=== PATIENT | female | born 1945 | race Caucasian/White ===

== ENCOUNTER 2017-11-30 17:46 | Emergency (ER) | payer OTHER ==
[~2017-11-30] VITALS: Ht 147.3 cm; Wt 61.2 kg
[~2017-11-30 17:46] MED LIST: ALBUTEROL2.5 MG/0.5 INH; ALEVE220 M1 PO; APAP500 PO; ASPIRIN81 M2 PO; CARAFATE 1 GM TA1 G1 PO; CHANTIX1 MG; DOXYCYCLINE 10100 MG PO; FISH OIL 1,001000 M2 PO; IRON325 PO; MULTI-VITAMIN1 EAC5 PO; NEURONTIN800 MG PO; NORCO 5-325 TA1 EACH PO; PERCOCET PO; PROTONIX40 M1 PO; SPIRIVA INH; VENTOLIN HFA 1818 GM INH; ZANAFLEX4 MG; ZEGERID 40 MG1 EACH PO; ZYRTEC10 M5 PO
[2017-11-30 18:21] LABS: URINE BILIRUBIN NEGATIVE (Negative); URINE BLOOD NEGATIVE (Negative); URINE CLARITY CLEAR; URINE COLOR YELLOW; URINE GLUCOSE-RANDOM NEGATIVE (Negative); URINE KETONES NEGATIVE (Negative); URINE LEUKOCYTES-REFLEX NEGATIVE (Negative); URINE NITRITE-REFLEX NEGATIVE (Negative); URINE PROTEIN 3+ (Negative); URINE SPECIFIC GRAVITY >= 1.030 (1.005-1.030); URINE UROBILINOGEN 0.2 E.U./dl (0.2-1.0)
[2017-11-30 18:22] LABS: ABSOLUTE BASOPHILS 0.1 thou/uL (0.0-0.2); ABSOLUTE EOSINOPHILS 0.2 thou/uL (0.0-0.7); ABSOLUTE LYMPHOCYTES 1.7 thou/uL (0.8-5.3); ABSOLUTE MONOCYTES 0.8 thou/uL (0.0-1.2); ABSOLUTE NEUTROPHILS 11.4 thou/uL (1.6-8.1); BASOPHILS 0.8 %; EOSINOPHILS 1.2 %; HEMATOCRIT 40.7 % (37.0-47.0); HEMOGLOBIN 13.4 gm/dL (12.0-15.0); LYMPHOCYTES 11.7 %; MCH 29.7 pg (26.0-34.0); MCHC 32.9 g/dL (28.0-37.0); MCV 90.2 fL (80.0-100.0); MONOCYTES 5.8 %; MPV 8.5 fl. (7.2-11.1); NUCLEATED RBCS 0 /100WBC; PLATELET COUNT* 299 thou/uL (150-400); POLYS 80.5 %; RBC 4.52 mil/uL (4.20-5.00); RDW-CV 15.3 % (10.5-14.5); WBC 14.2 thou/uL (4.0-11.0)
[2017-11-30 18:25] LABS: SQUAMOUS 4-10 Moderate /LPF (0-3); URINE RBC None Seen /HPF (0-2); URINE WBC-REFLEX None Seen /HPF (0-5)
[2017-11-30 18:26] LABS: BACTERIA-REFLEX None Seen /HPF (None Seen); CRYSTALS None Seen /LPF (None Seen); HYALINE CASTS 0-3 Few /LPF (None Seen); MUCUS 0-3 Light strn/LPF (None Seen)
[2017-11-30 18:30] LABS: ANION GAP 7 mmol/L (7-16); BUN 15 mg/dL (7-18); CALCIUM 8.6 mg/dL (8.5-10.1); CHLORIDE 105 mmol/L (98-107); CO2 27 mmol/L (21-32); CREATININE 1.3 mg/dL (0.6-1.3); GLUCOSE 90 mg/dL (70-99); POTASSIUM 3.7 mmol/L (3.5-5.1); SODIUM 139 mmol/L (136-145)
[2017-11-30 18:40] LABS: ALBUMIN 3.3 g/dL (3.4-5.0); ALKALINE PHOSPHATASE 94 U/L (46-116); LIPASE 108 U/L (73-393); NT-PRO BRAIN NAT PEPTIDE 1110 pg/mL (<300); SGOT 18 U/L (15-37); SGPT 20 U/L (30-65); TOTAL BILIRUBIN 0.3 mg/dL (<0.1-1.0); TOTAL PROTEIN 6.7 g/dL (6.4-8.2); TROPONIN-I LEVEL <0.06 ng/mL (<0.06)
[2017-11-30] MEDS ORDERED: LEVAQUIN 750 M750 MG PO (22:22)
[2017-11-30] MEDS ORDERED: PHENERGAN 25 MG25 MG PO (22:23)
[2017-11-30 22:46] VITALS: BP 185/98
--- NOTE | 2017-12-01 16:35 | EKG ---
[place] [address] ELECTROCARDIOGRAM REPORT Name: MAKENNA AVILES Room: [facility]#: [id number] Admission: 11/30/17 Attend Phys: Discharge: 11/30/17 Date of : 49 Report #: [id number] THIS REPORT FOR: //name// [facility] ED Test Date: 2017-11-30 Test Time: 18:17:11 Pat Name: MAKENNA AVILES Department: Room: Gender: F Players Assistant: JAEMS : 1945 Requested By: Dilia Handy Order Number: [id number] MD: Bay Haley Measurements Intervals [place] Rate: 63 P: -8 NV: 213 QRS: -63 QRSD: 139 T: -17 QT: 417 QTc: 427 Interpretive Statements Sinus rhythm Borderline prolonged NV interval RBBB and LAFB Probable left ventricular hypertrophy Compared to ECG 02/06/2015 18:01:07 Right bundle-branch block now present Electronically Signed On 12-01-2017 16:35:04 CDT by Bay Haley [email or web address] <ELECTRONICALLY SIGNED> By: Bay Haley MD, [facility] 12/01/17 1635 181 16 Bay Haley MD, [facility] /EPI
== END 2017-11-30 22:47 | disposition home or self-care (01) ==
LOC: M.ERS 17:46
PROVIDERS: Nurse Practitioner
DX: J18.8 Other pneumonia, unspecified organism (principal); R10.11 Right upper quadrant pain; R10.12 Left upper quadrant pain; G43.909 Migraine, unspecified, not intractable, without status migrainosus; I25.10 Atherosclerotic heart disease of native coronary artery without angina pectoris; J45.909 Unspecified asthma, uncomplicated; G62.9 Polyneuropathy, unspecified; Z96.643 Presence of artificial hip joint, bilateral; Z88.5 Allergy status to narcotic agent; Z88.8 Allergy status to other drugs, medicaments and biological substances; Z87.891 Personal history of nicotine dependence